=== PATIENT | female | born 1955 | race Caucasian/White ===

== ENCOUNTER 2018-09-20 09:46 | Observation (INO) | payer MEDICARE, SELFPAY ==
[2018-09-20] VITALS (9 sets, daily range): BP systolic 102–123; BP diastolic 53–74; PULSE 72–88; RESP 13–19; TEMP 36.6–36.9; O2SAT 91–98; BMI 32.9; BMI 33.9
--- NOTE | 2018-09-20 09:49 | NURSING ---
NO OLD EKGS
--- NOTE | 2018-09-20 10:03 | EKG12_ITS ---
Test Reason : REPEAT Blood Pressure : / mmHG Vent. Rate : 082 BPM Atrial Rate : 082 BPM P-R Int : 158 ms QRS Dur : 094 ms QT Int : 404 ms P-R-T Axes : 055 -24 025 degrees QTc Int : 472 ms Normal sinus rhythm Voltage criteria for left ventricular hypertrophy Abnormal ECG Confirmed by ISAK SAMUEL, DAVID ([id number]), non linear editor PRAVEEN STOUT ([id number]) on 09/21/2018 8:10:43 AM Referred By: Jorge Iniguez Confirmed By:DAVID PARISI MD
--- NOTE | 2018-09-20 10:03 | RAD_ITS ---
STUDY: X-RAY CHEST REASON FOR EXAM: Female, 62 years old. Left-sided chest pain. Dizziness and shortness of breath. TECHNIQUE: Single AP portable view of the chest. COMPARISON: None. FINDINGS: EKG electrodes are seen. The lungs are clear and expanded. There is no demonstrated pleural abnormality. Normal size heart. Normal mediastinum and melonie. Normal visualized pulmonary arteries. There is atherosclerotic tortuosity of the aortic arch and descending thoracic aorta. There are diffuse degenerative changes of the visualized thoracic spine. Fusion in the lower cervical spine. There is no demonstrated abnormality of the visualized soft tissue structures of the upper abdomen. RAD/Chest 1 View (Portable) IMPRESSION: No acute abnormality is seen. Electronically Signed: Mat Pitts, at 10:23 EDT , Service support ,
--- NOTE | 2018-09-20 10:09 | ED.DCSUM_ITS ---
History of Present Illness Chief Complaint: Chest Pain Informant: Patient Onset: Today Context: Sudden Onset Timing: Continuous Quality: Heaviness Location: Central chest radiating to neck Current Severity: Moderate Maximum Severity: Moderate Worsened by: Possibly smoking crack cocaine Relieved by: Nothing Narrative: Patient is a 62-year-old woman with history of hypertension, diabetes, hypercholesterolemia and coronary artery disease who presents with chest tightne ss that radiates to the jaw associated with diaphoresis, dyspnea and mild nausea that started between 0830 and 0900. Patient states that she is still having discomfort. She states she uses crack cocaine on a regular basis over the past 5 years. She denies fever, chills night sweats. She denies URI symptoms. Denies history of PE or DVT. She denies leg pain, swelling discoloration. She states intermittently her feet swell. She is not a good informant. Prior similar symptoms: No Recent Illness/Hospitalization: No - Past Medical History (1) History of hypertension Status: Acute (2) Hypercholesterolemia Status: Acute (3) History of diabetes mellitus Status: Acute (4) History of coronary artery disease Status: Acute Past Medical History - Allergies and Home Meds Allergies/Adverse Reactions: Allergies ampicillin Allergy (Verified 09/20/18 10:25) Nausea/Vom/Diarrhea bupropion [From Wellbutrin] Allergy (Verified 09/20/18 10:25) Rash Sulfa (Sulfonamide Antibiotics) Allergy (Verified 09/20/18 10:25) Nausea/Vom/Diarrhea Prior records reviewed: No Surgical History: - - Cardiac catheterization by Dr. chisholm many years ago Lives: Spouse/ Significant Other Smoking Status: Never smoker Alcohol: None Drugs: Cocaine Review of Systems General: Denies: Chills, Fever, Sweats Eyes: Denies: Visual changes - bilaterally, Diplopia ENT: Denies: Rhinorrhea, Sore throat Cardiovascular: Reports: Chest pain. Denies: Palpitations Respiratory: Reports: Dyspnea, Dyspnea on exertion. Denies: Cough, Sputum, Orthopnea, Paroxysmal nocturnal dyspnea, -, - Gastrointestinal: Denies: Abdominal pain, Nausea, Vomiting, Diarrhea, Melena, Hematochezia Genitourinary: Denies: Dysuria, Hematuria, Frequency Musculoskeletal: Denies: Myalgias, Arthralgias, Neck pain, Back pain, Extremity Pain Skin: Denies: Rash, Wounds Neurological: Denies: Headache, Weakness, Numbness Hematologic: Denies: Easy bruising, Easy bleeding Physical Exam Vital Signs/Narrative: Vital Signs Temp Pulse Resp BP Pulse Ox 09/20/18 09:48 98.3 F 87 19 H 123/66 H 91 Inital Vital Signs reviewed: Yes General: Well nourished, Well developed, No Acute Distress Head: Normocephalic, Atraumatic Eyes: Perrl, EOMI ENT: Moist mucous membranes, No rhinorrhea Neck: Supple, Nontender Cardiovascular: Regular rate, Regular rhythm, No murmurs, Normal S1, Normal S2 Respiratory: No distress, CTA bilaterally, Chest nontender Abdomen: Soft, Nontender, Nondistended, Normal bowel sounds Back: Nontender, Normal Inspection. Negative for: CVA tenderness Extremities: Nontender, No edema, - - There is no asymmetry, swelling, discoloration, leg vein distention, palpable cords or tenderness along the distribution of the deep venous system. Skin: Normal color, No rash, No Trauma. Negative for: Cyanosis, Diaphoresis, Jaundice Neurological: Alert, Oriented x3, Cranial nerves II-XII grossly intact, Normal Strength, Normal Sensation Psychological: Normal affect, Normal Mood Diagnostic/Tx/Re-eval Chest X-Ray - ED: 1 View, Read by ED Physician, Normal, Heart, Lungs, Mediastinum, Bony Structures, No Acute Disease Impressions Chest X-Ray 09/20/18 10:03 IMPRESSION: No acute abnormality is seen. Electronically Signed: Mat Pitts, at 10:23 EDT , Service support , 09/20/18 10:03 Chest 1 View (Portable) [RAD] Stat Laboratory Results 09/20/18 09/20/18 10:15 10:15 WBC 10.4 RBC 4.29 Hgb 12.0 Hct 36.6 L MCV 85.3 MCH 28.0 MCHC 32.8 RDW 13.7 RDW Differential 41.9 Plt Count 240 MPV 10.0 Immature Gran % (Auto) 0.400 Neut % (Auto) 54.3 Lymph % (Auto) 37.0 [place] % (Auto) 7.0 Eos % (Auto) 1.1 Baso % (Auto) 0.2 Absolute Neuts (auto) 5.7 Absolute Lymphs (auto) 3.86 Total Counted Not Reportable Sodium 135 L Potassium 3.2 L Chloride 98 Carbon Dioxide 27.0 Anion Gap 10 BUN 16 Creatinine 1.08 H Estim Creat Clear Calc 42.72 Est GFR (MDRD) Af Amer 66 Est GFR (MDRD) Non-Af 55 L BUN/Creatinine Ratio 14.8 Glucose 310 H Calcium 8.9 Troponin I < 0.015 - Medical Decision Making With multiple risk factors and history coronary disease will obtain EKG, chest x-ray for blood work to assess the etiology of her chest pain. This may be related to crack cocaine use, cardiac ischemia, noncardiac cause. Noncardiac causes include esophagitis/gastritis, GERD pain of unknown etiology and possibly pulmonary. Patient was reassessed at 1045. She is now complaining of burning sensation that radiates to her throat. This may represent GERD or GI etiology. She reports no improvement of the chest tightness with nitro; however, she no longer has tightness. She did receive nitroglycerin in the emergency department. ED Disposition - Plan for ED Patient: Disposition: Home or Assisted Living Diagnosis: Central chest pain, History of coronary artery disease, Crack cocaine use, History of diabetes mellitus, History of hypertension, Hypercholesterolemia
[2018-09-20] MEDS: Nitroglycerin SL (ED/IMG/CATH) 0.4 MG TABLET SUBLINGUAL (10:26)
--- NOTE | 2018-09-20 10:27 | ED.RN ---
NITRO GIVEN 12 NITRO FOR COMPLAINTS OD CHEST PAIN. 2 NITRO PER SQUAD WITH NO EFFECT. PT STATES MORE OF A BURNING SENSATION UP INTO ESOPHAGUS.
--- NOTE | 2018-09-20 10:31 | ED.RN ---
PT STATES ONLY SMOKES 1 TO 2 TIMES A WEEK--OR WHENEVER SHE SMOKES CRACK,BUT DOES NOT SMOKE REGULAR CIGARETTES
[2018-09-20 10:34] LABS: Absolute Lymphocyte Count 3.86 X10^3/ul (0.83-4.51); Absolute Neutrophil Count 5.7 X10^3/uL (2.0-7.7); Basophil# 0.02 X10^3/uL; Basophil% 0.2 % (0-1); Eosinophil# 0.11 X10^3/uL; Eosinophils% 1.1 % (0-5); Hematocrit 36.6 % (37-47); Lymphocyte # 3.86 X10^3/ul (4.0); Mean Corp Hgb Conc 32.8 g/gl (32-36); Mean Corpuscular Volume 85.3 fL (81-99); Monocyte# 0.73 X10^3/uL; Neutrophil # 5.66 X10^3/uL (2.7-7.7); Neutrophil % 54.3 % (47-70); Platelet Count 240 K/mm3 (150-450); RBC Distribution Width CV 13.7 % (11.6-14.6); RBC Distribution Width SD 41.9 fl (35.1-43.9); Red Blood Count 4.29 M/mm3 (4.2-5.4); White Blood Count 10.4 K/mm3 (4.4-11.0)
[2018-09-20 10:35] LABS: POSITIVE COUNT NO; POSITIVE DIFFERENTIAL NO; POSITIVE MORPHOLOGY NO
[2018-09-20 10:43] LABS: Anion Gap 10 (5-15); BUN 16 mg/dL (7-18); BUN/Creat Ratio 14.8 RATIO (10-20); Calcium,Total 8.9 mg/dL (8.5-10.1); Chloride 98 mmol/L (98-107); Creatinine, Serum 1.08 mg/dL (0.55-1.02); EST Glomerular Filtration Rate 55 mL/min (>60); Est Glom Filt Rate - Afr Amer 66 mL/min (>60); Estimated Creatinine Clearance 42.72 ml/min; Glucose 310 mg/dL (74-106); Potassium 3.2 mmol/L (3.5-5.1); Sodium Level 135 mmol/L (136-145)
--- NOTE | 2018-09-20 10:54 | NURSING ---
DR STINSON FOR DR BARBER
--- NOTE | 2018-09-20 12:22 | EKG12_ITS ---
Test Reason : CP Blood Pressure : / mmHG Vent. Rate : 087 BPM Atrial Rate : 087 BPM P-R Int : 150 ms QRS Dur : 090 ms QT Int : 400 ms P-R-T Axes : 070 -23 -10 degrees QTc Int : 481 ms Sinus rhythm with Fusion complexes Moderate voltage criteria for LVH, may be normal variant Nonspecific T wave abnormality Abnormal ECG Confirmed by ISAK SAMUEL, DAVID ([id number]), offline editor PRAVEEN STOUT ([id number]) on 09/21/2018 8:11:38 AM Referred By: Jorge Iniguez Confirmed By:DAVID PARISI MD
--- NOTE | 2018-09-20 12:26 | EKG12_ITS ---
Test Reason : CP ADMISSION Blood Pressure : / mmHG Vent. Rate : 070 BPM Atrial Rate : 070 BPM P-R Int : 156 ms QRS Dur : 094 ms QT Int : 418 ms P-R-T Axes : 047 -24 -01 degrees QTc Int : 451 ms Normal sinus rhythm Leftward axis Voltage criteria for left ventricular hypertrophy Poor R wave progression Abnormal ECG When compared with ECG of 20-SEP-2018 10:15, MANUAL COMPARISON REQUIRED, DATA IS UNCONFIRMED Confirmed by SHIN SAMUEL, KEENAN ([id number]), food editor CAREN CUMMINS ([id number]) on 09/22/2018 3:21:24 PM Referred By: Jorge Iniguez Confirmed By:KEENAN MELISSA MD
[2018-09-20] MEDS: Insulin Lispro 100 UNIT/ML INSULN.PEN SQ ×3 (12:40→22:43)
[2018-09-20 13:05] LABS: Bedside Glucose 244 mg/dL (70-110)
[2018-09-20] MEDS: Pregabalin 75 MG Capsule PO ×2 (16:01→20:35)
[2018-09-20] MEDS: Pramipexole Di-HCl 1 MG Tablet PO (16:02)
--- NOTE | 2018-09-20 16:10 | PCM.HP.STD ---
Problem List (1) History of hypertension Status: Acute (2) Hypercholesterolemia Status: Acute (3) History of diabetes mellitus Status: Acute (4) Central chest pain Status: Acute (5) Crack cocaine use Status: Acute History of Present Illness Date of Admission: 09/20/18 Chief Complaint: Chest pain The patient is a 62 year old F who is never been to this hospital before with history as below presents with chest pain. She states that she had chest tightness that began suddenly and radiated to her jaw and had association with dyspnea, mild nausea as well as diaphoresis. She said that the chest pain started this morning between 8 and 9 AM and she was an active and it did not get worse with activity. She has had chest pain like this in the past that had evaluation that was negative with a cardiac cath years ago. She presented to the ER where she had an initial troponin that was normal and a normal EKG. she admits to smoking crack cocaine for the past 5 years and her last use was last night. This morning she woke up with chest pain. Past Medical History Allergies ampicillin Allergy (Verified 09/20/18 10:25) Nausea/Vom/Diarrhea bupropion [From Wellbutrin] Allergy (Verified 09/20/18 10:25) Rash Sulfa (Sulfonamide Antibiotics) Allergy (Verified 09/20/18 10:25) Nausea/Vom/Diarrhea Home Medications: Ambulatory Orders Medication Instructions Recorded Albuterol IH (ProAir) [Proair Hfa 1 puff INHALATION Q4H PRN PRN 09/20/18 (SP)Vent Pts] Albuterol Sulfate [Proair 90 mcg IH DAILY 09/20/18 Respiclick] Atorvastatin Calcium 10 mg PO DAILY 09/20/18 Brexpiprazole [Rexulti] 2 mg PO QHS 09/20/18 Budesonide/Formoterol 160/4.5 2 puff INHALATION BID 09/20/18 [Symbicort 160/4.5 Mcg Inhaler (SP)] Duloxetine HCl 60 mg PO DAILY 09/20/18 Gabapentin [Neurontin] 300 mg PO TID 09/20/18 Insulin Degludec [Tresiba 44 unit SQ DAILY 09/20/18 Flextouch U-100] Insulin Detemir [Levemir (BKC)] 8 units SC BID 09/20/18 Lisinopril 20 mg PO DAILY 09/20/18 Meloxicam 15 mg PO DAILY 09/20/18 Metoprolol Tartrate 50 mg PO DAILY 09/20/18 Omeprazole 20 mg PO DAILY 09/20/18 Pramipexole Di-HCl [Pramipexole 1 mg PO BID 09/20/18 Dihydrochloride] Pregabalin [Lyrica] 75 mg PO TID 09/20/18 busPIRone [Buspar] 15 mg PO BID 09/20/18 traZODone [Desyrel] 100 mg PO QHS 09/20/18 Surgical History: appendectomy, cholecystectomy, hysterectomy, - - Cardiac catheterization by Dr. chisholm many years ago Lives: Spouse/ Significant Other Smoking Status: Never smoker Alcohol: None Drugs: Cocaine - *Family History Maternal History Items: Heart Disease, Stroke Review of Systems Constitutional: Denies: Chills, Fever, Weight Change HEENT: Denies: Head Aches, Sinus Congestion, Sinus Drainage Cardiovascular: Reports: Chest Pressure, Light Headedness. Denies: Chest Pain, Palpitations Respiratory: Reports: Shortness of Breath. Denies: Cough, Shortness of breath at rest, Sputum production Gastrointestinal: Denies: Abdominal Pain, Nausea, Vomiting Genitourinary: Denies: Dysuria Musculoskeletal: Denies: Joint Pain, Joint Tenderness Skin: Denies: Rash, Wounds Neurological: Denies: Numbness, Tingling, Focal weakness Psychiatric: Denies: Anxiety, Depression Hematologic/ Lymphatic: Denies: Easy Bruising, Easy Bleeding VTE Information - Inpt Only VTE Present on Admission: Yes Patient Problems: Active and Suspected Problems History of hypertension (Acute) Hypercholesterolemia (Acute) History of diabetes mellitus (Acute) History of coronary artery disease (Acute) Central chest pain (Acute) Crack cocaine use (Acute) - Physical Exam General: Alert, Oriented x3, Cooperative, No apparent distress HEENT: Atraumatic, PERRLA, EOMI, Normocephalic Oral: Moist Mucosa Neck: Supple, No JVD Lungs: Clear to auscultation, Normal air movement, No rhonchi, No wheeze, No rales, Diminished Cardiovascular: Regular rate, Regular Rhythm, Normal S1, Normal S2, No murmurs Abdomen: Soft, Non Tender, Non-Distended, No Hepato-splenomegaly Extremities: No edema, Capillary Refill Less than 3 Seconds Skin: No rashes, No breakdown Neurological: Neuro grossly intact, Sensory exam intact to light touch and pain Psych/Mental Status: Normal Affect, Appropriate Vital Signs Temp Pulse Resp BP Pulse Ox 98.1 F 75 13 121/74 H 96 09/20/18 11:48 09/20/18 15:08 09/20/18 11:48 09/20/18 11:48 09/20/18 11:48 Oxygen Flow Rate (L/min) 2 Oxygen Delivery Method Room Air Weight: 185 lb 6.54 oz Body Mass Index (BMI) 33.9 Laboratory Tests Past 24 Hrs 09/20/18 09/20/18 09/20/18 10:15 10:15 13:00 WBC 10.4 RBC 4.29 Hgb 12.0 Hct 36.6 L MCV 85.3 MCH 28.0 MCHC 32.8 RDW 13.7 RDW Differential 41.9 Plt Count 240 MPV 10.0 Immature Gran % (Auto) 0.400 Neut % (Auto) 54.3 Lymph % (Auto) 37.0 [place] % (Auto) 7.0 Eos % (Auto) 1.1 Baso % (Auto) 0.2 Absolute Neuts (auto) 5.7 Absolute Lymphs (auto) 3.86 Total Counted Not Reportable Sodium 135 L Potassium 3.2 L Chloride 98 Carbon Dioxide 27.0 Anion Gap 10 BUN 16 Creatinine 1.08 H Estim Creat Clear Calc 42.72 Est GFR (MDRD) Af Amer 66 Est GFR (MDRD) Non-Af 55 L BUN/Creatinine Ratio 14.8 Glucose 310 H Calcium 8.9 Troponin I < 0.015 < 0.015 POC Glucose 09/20/18 12:29 POC Glucose 244 H Assessment/Plan All Active Problems History of hypertension (Acute) Hypercholesterolemia (Acute) History of diabetes mellitus (Acute) History of coronary artery disease (Acute) Central chest pain (Acute) Crack cocaine use (Acute) 1. Chest pain -States that her pain is in the middle of her chest and radiates to her jaw -Her pain resolved earlier today and she states it is coming back -2 troponins are normal and EKG is unremarkable -She denies any specific association with activity -We will plan for stress test in the morning 2. CAD status post cath without a stent/HTN/HLD -She states that she had a cardiac cath years ago which was normal and the need a stent -At that time she was having chest pain and said that he might be having heart failure but she is not sure -At the moment we will continue with her home blood pressure medications of metoprolol, lisinopril, and continue with Lipitor 3. IDDM 2/neuropathy -Her blood sugars have been out of control she says and was going to have a change done to her insulin regimen by her doctor on the when she sees her PCP -We will continue with Lantus 44 units in the morning as well as a sliding scale insulin -She is on both gabapentin and Lyrica as an outpatient which can be continued as well as the pramipexole 4. Depression/anxiety -Stable -Continue with her Rexulti, BuSpar, Cymbalta, trazodone 5. Asthma -Currently without exacerbation -Continue with her home aerosols 6. Drug use -She admits to smoking crack cocaine 3 times a month, her last use was yesterday and today she has chest pain -We will obtain a urine drug screen but she denies other drug use 7. Hypokalemia -Admission her potassium was 3.2, -Potassium 60 mEq p.o. was given today DVT: Lovenox Code Visit OBSV E&M: 81101 Initial observation care L3
[2018-09-20 17:20] LABS: Amphetamine Urine VISTA NEGATIVE (<1000 ng/mL); Barbiturate Urine VISTA NEGATIVE (< 200 ng/mL); Benzodiazepine Urine VISTA NEGATIVE (< 200 ng/mL); Cocaine Urine VISTA POSITIVE (< 300 ng/mL); Ecstacy Urine VISTA NEGATIVE (< 500 ng/mL); Methadone Urine VISTA NEGATIVE (< 300 ng/mL); PCP Urine VISTA NEGATIVE (< 25 ng/mL); THC Urine VISTA POSITIVE (< 50 ng/mL); Vista UDS pH Range 6
[2018-09-20 17:45] LABS: Bedside Glucose 218 mg/dL (70-110)
[2018-09-20] MEDS: BREXPIPRAZOLE 2 MG TABLET PO (20:35)
[2018-09-20] MEDS: Atorvastatin Calcium 10 MG Tablet PO (20:35)
[2018-09-20] MEDS: traZODone 100 MG Tablet PO (20:35)
[2018-09-20] MEDS: busPIRone 15 MG TABLET PO (20:36)
[2018-09-20 22:51] LABS: Bedside Glucose 176 mg/dL (70-110)
[2018-09-21 02:40] VITALS: BP 124/72; PULSE 65; RESP 16; TEMP 36.5; O2SAT 99
[2018-09-21 03:00] VITALS: PULSE 67
[2018-09-21] MEDS: Lisinopril 20 MG Tablet PO (05:54)
[2018-09-21] MEDS: Pregabalin 75 MG Capsule PO (05:54)
[2018-09-21 05:55] VITALS: BP 92/72; PULSE 80; RESP 16; TEMP 37; O2SAT 96
--- NOTE | 2018-09-21 05:55 | EKG12_ITS ---
Test Reason : AM EKG Blood Pressure : / mmHG Vent. Rate : 064 BPM Atrial Rate : 064 BPM P-R Int : 170 ms QRS Dur : 080 ms QT Int : 428 ms P-R-T Axes : 067 -26 -16 degrees QTc Int : 441 ms Normal sinus rhythm Minimal voltage criteria for LVH, may be normal variant Borderline ECG Confirmed by SHIN SAMUEL, KEENAN ([id number]), index editor RADHA COLON ([id number]) on 09/22/2018 11:40:05 AM Referred By: Jorge Iniguez Confirmed By:KEENAN MELISSA MD
[2018-09-21 06:01] LABS: International Normalized Ratio 0.9; Prothrombin Time (Protime)PT. 12.4 SECONDS (11.7-14.9)
[2018-09-21 06:02] LABS: Partial Thromboplast Time 26.9 Seconds (24.1-36.2)
[2018-09-21 06:03] LABS: Absolute Lymphocyte Count 3.78 X10^3/ul (0.83-4.51); Absolute Neutrophil Count 4.4 X10^3/uL (2.0-7.7); Basophil# 0.02 X10^3/uL; Basophil% 0.2 % (0-1); Eosinophil# 0.19 X10^3/uL; Eosinophils% 2.1 % (0-5); Hematocrit 37.6 % (37-47); Hemoglobin 11.9 g/dl (12.0-15.0); Lymphocyte # 3.78 X10^3/ul (4.0); Mean Corp Hgb Conc 31.6 g/gl (32-36); Mean Corpuscular Hgb 27.7 pg (27.0-32.0); Mean Corpuscular Volume 87.4 fL (81-99); Mean Platelet Vol. 10.2 fl (6.2-12.0); Monocyte# 0.55 X10^3/uL; Monocyte% 6.1 % (0-10); Neutrophil # 4.43 X10^3/uL (2.7-7.7); Neutrophil % 49.2 % (47-70); Platelet Count 225 K/mm3 (150-450); RBC Distribution Width CV 13.8 % (11.6-14.6); RBC Distribution Width SD 43.4 fl (35.1-43.9)
[2018-09-21 06:11] LABS: POSITIVE COUNT NO; POSITIVE DIFFERENTIAL NO; POSITIVE MORPHOLOGY NO
[2018-09-21 06:21] LABS: Anion Gap 10 (5-15); BUN 15 mg/dL (7-18); BUN/Creat Ratio 16.5 RATIO (10-20); Calcium,Total 8.8 mg/dL (8.5-10.1); Chloride 108 mmol/L (98-107); Cholesterol 154 mg/dL (200); Creatinine, Serum 0.91 mg/dL (0.55-1.02); EST Glomerular Filtration Rate 67 mL/min (>60); Est Glom Filt Rate - Afr Amer 81 mL/min (>60); Glucose 192 mg/dL (74-106); High Density Lipoprotein 41 mg/dL; Magnesium 1.8 mg/dL (1.6-2.6); Potassium 4.2 mmol/L (3.5-5.1); Sodium Level 142 mmol/L (136-145); Triglycerides 238 mg/dL; Very Low Density Lipoprotein 48 mg/dL (5-40)
[2018-09-21 07:10] LABS: Bedside Glucose 188 mg/dL (70-110)
--- NOTE | 2018-09-21 09:04 | STRESSREP ---
Stress Test Report Date: 09-21-18 Procedure: Pharmacologic stress nuclear imaging study Indications: Chest pain: Dyspnea Consent: Per the patient Procedure: The patient underwent pharmacologic (Regadenoson) evaluation with a peak heart rate of 86 beats per minute (54 %predicted maximal heart rate) and a peak blood pressure of 134/59 mmHg. The baseline ECG demonstrated normal sinus rhythm: Nonspecific T wave abnormality. The peak pharmacologic ECG demonstrated nonspecific T wave abnormality. There were no cardiac dysrhythmias pretest, during pharmacologic infusion, or recovery. There was no complaint of chest discomfort during pharmacologic infusion or recovery. The examination was discontinued secondary to completion of protocol. Impression: 1. Pharmacologic (Regadenoson) evaluation 2. Peak pharmacologic ECG with continued nonspecific T wave abnormality. 3. There were no cardiac dysrhythmias pretest, during pharmacologic infusion, or recovery. 4. Nuclear images pending Myocardial perfusion imaging study: Technique: The patient was injected with 11.9 millicuries of technetium 99m Cardiolite and subsequently rest SPECT Cardiolite nuclear imaging was obtained in the horizontal long, vertical long, and short axis views. The patient underwent pharmacologic (Regadenoson) evaluation with a peak heart rate of 86 beats per minute (54 % percent predicted maximal heart rate) and a peak blood pressure of 134/59 mmHg. The patient was injected with 34.1 millicuries of technetium 99m Cardiolite and subsequently stress SPECT Cardiolite nuclear imaging was obtained in the horizontal long, vertical long, and short axis views. A gated Cardiolite study at peak stress was obtained. Interpretation: Rest and stress SPECT Cardiolite nuclear imaging status post realignment, normalization, and attenuation correction demonstrate relative uniform tracer uptake and myocardial perfusion appearing within normal limits. There is end systolic thickening and brightening. The gated Cardiolite study demonstrates myocardial thickening and inward wall motion. The reported LVEF is 60 %. Impression: 1. Rest and stress SPECT Cardiolite nuclear imaging demonstrate relative uniform tracer uptake and myocardial perfusion appearing within normal limits. 2. The gated Cardiolite study reports an LVEF of 60 %. This note was generated with [employer] software. It may contain incorrect words, spelling, and punctuation that were not noted in checking the note before signing.
[2018-09-21 09:12] VITALS: PULSE 65
--- NOTE | 2018-09-21 09:15 | STRESSREP_ITS ---
Stress Test Report Date: 09-21-18 Procedure: Pharmacologic stress nuclear imaging study Indications: Chest pain: Dyspnea Consent: Per the patient Procedure: The patient underwent pharmacologic (Regadenoson) evaluation with a peak heart rate of 86 beats per minute (54 %predicted maximal heart rate) and a peak blood pressure of 134/59 mmHg. The baseline ECG demonstrated normal sinus rhythm: Nonspecific T wave abnormality. The peak pharmacologic ECG demonstrated nonspecific T wave abnormality. There were no cardiac dysrhythmias pretest, during pharmacologic infusion, or recovery. There was no complaint of chest discomfort during pharmacologic infusion or recovery. The examination was discontinued secondary to completion of protocol. Impression: 1. Pharmacologic (Regadenoson) evaluation 2. Peak pharmacologic ECG with continued nonspecific T wave abnormality. 3. There were no cardiac dysrhythmias pretest, during pharmacologic infusion, or recovery. 4. Nuclear images pending Myocardial perfusion imaging study: Technique: The patient was injected with 11.9 millicuries of technetium 99m Cardiolite and subsequently rest SPECT Cardiolite nuclear imaging was obtained in the horizontal long, vertical long, and short axis views. The patient underwent pharmacologic (Regadenoson) evaluation with a peak heart rate of 86 beats per minute (54 % percent predicted maximal heart rate) and a peak blood pressure of 134/59 mmHg. The patient was injected with 34.1 millicuries of technetium 99m Cardiolite and subsequently stress SPECT Cardiolite nuclear imaging was obtained in the horizontal long, vertical long, and short axis views. A gated Cardiolite study at peak stress was obtained. Interpretation: Rest and stress SPECT Cardiolite nuclear imaging status post realignment, normalization, and attenuation correction demonstrate relative uniform tracer uptake and myocardial perfusion appearing within normal limits. There is end s ystolic thickening and brightening. The gated Cardiolite study demonstrates myocardial thickening and inward wall motion. The reported LVEF is 60 %. Impression: 1. Rest and stress SPECT Cardiolite nuclear imaging demonstrate relative uniform tracer uptake and myocardial perfusion appearing within normal limits. 2. The gated Cardiolite study reports an LVEF of 60 %. This note was generated with [employer] software. It may contain incorrect words, spelling, and punctuation that were not noted in checking the note before signing.
--- NOTE | 2018-09-21 09:44 | DCINST_ITS ---
- Discharge Diagnoses Current Active Problems: Current Active and Chronic Problems History of hypertension (Acute) Hypercholesterolemia (Acute) History of diabetes mellitus (Acute) History of coronary artery disease (Acute) Central chest pain (Acute) Crack cocaine use (Acute) You will use the following diet at home:: Cardiac Your food should be the consistency of: Regular Your liquids should be the consistency of: Regular/Thin Discharge Activity: Return to Normal Activity Call your doctor if you observe: Fever of 101 or Higher, Shortness of breath, Dizziness, Fainting spells, Swelling in the ankles, Chest pain, Increased palpitations (irregular heartbeat) Additional Instructions: Avoid crack cocaine as this can exacerbate feelings of chest pain. Allergies/Adverse Reactions: Allergies ampicillin Allergy (Verified 09/20/18 10:25) Nausea/Vom/Diarrhea bupropion [From Wellbutrin] Allergy (Verified 09/20/18 10:25) Rash Sulfa (Sulfonamide Antibiotics) Allergy (Verified 09/20/18 10:25) Nausea/Vom/Diarrhea Medications to take at Discharge Albuterol IH (ProAir) [Proair Hfa] 1 puff INHALATION Q4H PRN PRN 09/20/18 Albuterol Sulfate [Proair Respiclick] 90 mcg IH DAILY 09/20/18 Atorvastatin Calcium 10 mg PO DAILY 09/20/18 Brexpiprazole [Rexulti] 2 mg PO QHS 09/20/18 Budesonide/Formoterol 160/4.5 [Symbicort 160/4.5 Mcg Inhaler (SP)] 2 puff INHALATION BID 09/20/18 Duloxetine HCl 60 mg PO DAILY 09/20/18 Gabapentin [Neurontin] 300 mg PO TID 09/20/18 Insulin Degludec [Tresiba Flextouch U-100] 44 unit SQ DAILY 09/20/18 Insulin Detemir [Levemir FlexPen] 8 units SC BID 09/20/18 Lisinopril 20 mg PO DAILY 09/20/18 Meloxicam 15 mg PO DAILY 09/20/18 Metoprolol Tartrate 50 mg PO DAILY 09/20/18 Omeprazole 20 mg PO DAILY 09/20/18 Pramipexole Di-HCl [Pramipexole Dihydrochloride] 1 mg PO BID 09/20/18 Pregabalin [Lyrica] 75 mg PO TID 09/20/18 busPIRone [Buspar] 15 mg PO BID 09/20/18 traZODone [Desyrel] 100 mg PO QHS 09/20/18 Primary Care Physician: Sophia Foote DO [Primary Care Provider] - Please follow up with your Primary Care Physician in: 3-5 days Test Results: Test results from this visit will be discussed in further detail at your follow- up appointment, if applicable.
[2018-09-21 09:57] VITALS: BP 127/55; PULSE 66; RESP 16; TEMP 36.6; O2SAT 98
[2018-09-21 10:00] VITALS: PULSE 66
[2018-09-21] MEDS: Meloxicam 15 MG Tablet PO (10:00)
[2018-09-21] MEDS: busPIRone 15 MG TABLET PO (10:00)
[2018-09-21] MEDS: DULoxetine Hcl 60 MG Capsule PO (10:00)
[2018-09-21] MEDS: Metoprolol Tartrate 50 MG Tablet PO (10:00)
[2018-09-21] MEDS: Pramipexole Di-HCl 1 MG Tablet PO (10:01)
--- NOTE | 2018-09-21 10:25 | PCM.DC.SUM ---
Discharge Date and Diagnosis - Problem List Patient Problems: Active and Suspected Problems History of hypertension (Acute) Hypercholesterolemia (Acute) History of diabetes mellitus (Acute) History of coronary artery disease (Acute) Central chest pain (Acute) Crack cocaine use (Acute) Date of Admission: 09/20/18 Date of Discharge: 09/21/18 - Primary Discharge Diagnosis Active and Suspected Problems History of hypertension (Acute) Hypercholesterolemia (Acute) History of diabetes mellitus (Acute) History of coronary artery disease (Acute) Central chest pain (Acute) Crack cocaine use (Acute) Hospital Course and Treatment Imaging Results: CXR: Normal Consults: None Operations: None Procedures: Nuclear stress test - Interpretation: Rest and stress SPECT Cardiolite nuclear imaging status post realignment, normalization, and attenuation correction demonstrate relative uniform tracer uptake and myocardial perfusion appearing within normal limits. There is end systolic thickening and brightening. The gated Cardiolite study demonstrates myocardial thickening and inward wall motion. The reported LVEF is 60 %. Impression: 1. Rest and stress SPECT Cardiolite nuclear imaging demonstrate relative uniform tracer uptake and myocardial perfusion appearing within normal limits. 2. The gated Cardiolite study reports an LVEF of 60 %. Summary of Care Provided: Per HPI: The patient is a 62 year old F who is never been to this hospital before with history as below presents with chest pain. She states that she had chest tightness that began suddenly and radiated to her jaw and had association with dyspnea, mild nausea as well as diaphoresis. She said that the chest pain started this morning between 8 and 9 AM and she was an active and it did not get worse with activity. She has had chest pain like this in the past that had evaluation that was negative with a cardiac cath years ago. She presented to the ER where she had an initial troponin that was normal and a normal EKG. she admits to smoking crack cocaine for the past 5 years and her last use was last night. This morning she woke up with chest pain. Hospital Course: 1. Chest pain/CAD status post cath without a stent/HTN/[id number]-suco-old female who is been smoking crack cocaine presented 12 hours after smoking cocaine with chest pain. It was not associated with any movement that she could describe. She had 3- troponins, normal EKG, and a negative stress test. She states that her pain has resolved today and that she is feeling better and would like to go home. I discussed with her that she should discontinue smoking crack cocaine as this can cause chest pain and follow-up with her primary care doctor in 3 to 5 days. She understood and agreed to the plan. 2. IDDM 2/neuropathy/obesity-she is a 44 units of Tresiba in the morning as well as 8 units of Levemir twice daily. During her admission she was only on the 44 units daily and her blood sugars were controlled below 200 on an appropriate diet this was also discussed with her especially given that her BMI is 33.9. Lifestyle modifications were advised. She is going to follow-up with her primary care physician for insulin dosing adjustment. 2. Her other medical diagnoses were evaluated in her home medications were continued where appropriate Patient Problems: Active and Suspected Problems History of hypertension (Acute) Hypercholesterolemia (Acute) History of diabetes mellitus (Acute) History of coronary artery disease (Acute) Central chest pain (Acute) Crack cocaine use (Acute) Objective: General: Alert, Oriented x3, Cooperative, No apparent distress HEENT: Atraumatic, PERRLA, EOMI, Normocephalic Oral: Moist Mucosa Neck: Supple, No JVD Lungs: Clear to auscultation, Normal air movement, No rhonchi, No wheeze, No rales, Diminished Cardiovascular: Regular rate, Regular Rhythm, Normal S1, Normal S2, No murmurs Abdomen: Soft, Non Tender, Non-Distended, No Hepato-splenomegaly Extremities: No edema, Capillary Refill Less than 3 Seconds Skin: No rashes, No breakdown Neurological: Neuro grossly intact, Sensory exam intact to light touch and pain Psych/Mental Status: Normal Affect, Appropriate - Physical Exam Vital Signs Temp Pulse Resp BP Pulse Ox 97.9 F 66 16 127/55 H 98 09/21/18 09:57 09/21/18 10:00 09/21/18 09:57 09/21/18 09:57 09/21/18 09:57 Oxygen Flow Rate (L/min) 2 Oxygen Delivery Method Room Air Weight: 185 lb 6.54 oz Body Mass Index (BMI) 33.9 Intake and Output for Last 24 Hours 09/19/18 09/20/18 09/21/18 23:59 23:59 23:59 Intake Total 640 / 640 0 / 0 Balance 640 / 640 0 / 0 Laboratory Tests Past 24 Hrs 09/20/18 09/20/18 09/20/18 10:15 10:15 13:00 WBC 10.4 RBC 4.29 Hgb 12.0 Hct 36.6 L MCV 85.3 MCH 28.0 MCHC 32.8 RDW 13.7 RDW Differential 41.9 Plt Count 240 MPV 10.0 Immature Gran % (Auto) 0.400 Neut % (Auto) 54.3 Lymph % (Auto) 37.0 Geary % (Auto) 7.0 Eos % (Auto) 1.1 Baso % (Auto) 0.2 Absolute Neuts (auto) 5.7 Absolute Lymphs (auto) 3.86 Total Counted Not Reportable PT INR APTT Sodium 135 L Potassium 3.2 L Chloride 98 Carbon Dioxide 27.0 Anion Gap 10 BUN 16 Creatinine 1.08 H Estim Creat Clear Calc 42.72 Est GFR (MDRD) Af Amer 66 Est GFR (MDRD) Non-Af 55 L BUN/Creatinine Ratio 14.8 Glucose 310 H Calcium 8.9 Magnesium Troponin I < 0.015 < 0.015 Triglycerides Cholesterol LDL Cholesterol VLDL Cholesterol HDL Cholesterol Urine Opiates Screen Urine Methadone Screen Ur Barbiturates Screen Ur Phencyclidine Scrn Ur Amphetamines Screen U Methamphetamin-MDMA U Benzodiazepines Scrn Urine Cocaine Screen U Cannabinoids Screen Ur Drug Screen Comment 09/20/18 09/20/18 09/21/18 16:10 16:40 05:10 WBC RBC Hgb Hct MCV MCH MCHC RDW RDW Differential Plt Count MPV Immature Gran % (Auto) Neut % (Auto) Lymph % (Auto) Geary % (Auto) Eos % (Auto) Baso % (Auto) Absolute Neuts (auto) Absolute Lymphs (auto) Total Counted PT INR APTT Sodium 142 Potassium 4.2 Chloride 108 H Carbon Dioxide 24.0 Anion Gap 10 BUN 15 Creatinine 0.91 Estim Creat Clear Calc 50.70 Est GFR (MDRD) Af Amer 81 Est GFR (MDRD) Non-Af 67 BUN/Creatinine Ratio 16.5 Glucose 192 H Calcium 8.8 Magnesium 1.8 Troponin I < 0.015 Triglycerides 238 H Cholesterol 154 LDL Cholesterol 65 VLDL Cholesterol 48 H HDL Cholesterol 41 Urine Opiates Screen NEGATIVE Urine Methadone Screen NEGATIVE Ur Barbiturates Screen NEGATIVE Ur Phencyclidine Scrn NEGATIVE Ur Amphetamines Screen NEGATIVE U Methamphetamin-MDMA NEGATIVE U Benzodiazepines Scrn NEGATIVE Urine Cocaine Screen POSITIVE H U Cannabinoids Screen POSITIVE H Ur Drug Screen Comment 09/21/18 09/21/18 05:10 05:10 WBC 9.0 RBC 4.30 Hgb 11.9 L Hct 37.6 MCV 87.4 MCH 27.7 MCHC 31.6 L RDW 13.8 RDW Differential 43.4 Plt Count 225 MPV 10.2 Immature Gran % (Auto) 0.400 Neut % (Auto) 49.2 Lymph % (Auto) 42.0 H Geary % (Auto) 6.1 Eos % (Auto) 2.1 Baso % (Auto) 0.2 Absolute Neuts (auto) 4.4 Absolute Lymphs (auto) 3.78 Total Counted Not Reportable PT 12.4 INR 0.9 APTT 26.9 Sodium Potassium Chloride Carbon Dioxide Anion Gap BUN Creatinine Estim Creat Clear Calc Est GFR (MDRD) Af Amer Est GFR (MDRD) Non-Af BUN/Creatinine Ratio Glucose Calcium Magnesium Troponin I Triglycerides Cholesterol LDL Cholesterol VLDL Cholesterol HDL Cholesterol Urine Opiates Screen Urine Methadone Screen Ur Barbiturates Screen Ur Phencyclidine Scrn Ur Amphetamines Screen U Methamphetamin-MDMA U Benzodiazepines Scrn Urine Cocaine Screen U Cannabinoids Screen Ur Drug Screen Comment POC Glucose 09/21/18 09/20/18 09/20/18 05:58 22:43 16:58 POC Glucose 188 H 176 H 218 H 09/20/18 12:29 POC Glucose 244 H Discharge Activity: Return to Normal Activity Call your doctor if you observe: Fever of 101 or Higher, Shortness of breath, Dizziness, Fainting spells, Swelling in the ankles, Chest pain, Increased palpitations (irregular heartbeat) Home Medications: Medications to take at Discharge Albuterol IH (ProAir) [Proair Hfa] 1 puff INHALATION Q4H PRN PRN 09/20/18 Albuterol Sulfate [Proair Respiclick] 90 mcg IH DAILY 09/20/18 Atorvastatin Calcium 10 mg PO DAILY 09/20/18 Brexpiprazole [Rexulti] 2 mg PO QHS 09/20/18 Budesonide/Formoterol 160/4.5 [Symbicort 160/4.5 Mcg Inhaler (SP)] 2 puff INHALATION BID 09/20/18 Duloxetine HCl 60 mg PO DAILY 09/20/18 Gabapentin [Neurontin] 300 mg PO TID 09/20/18 Insulin Degludec [Tresiba Flextouch U-100] 44 unit SQ DAILY 09/20/18 Insulin Detemir [Levemir FlexPen] 8 units SC BID 09/20/18 Lisinopril 20 mg PO DAILY 09/20/18 Meloxicam 15 mg PO DAILY 09/20/18 Metoprolol Tartrate 50 mg PO DAILY 09/20/18 Omeprazole 20 mg PO DAILY 09/20/18 Pramipexole Di-HCl [Pramipexole Dihydrochloride] 1 mg PO BID 09/20/18 Pregabalin [Lyrica] 75 mg PO TID 09/20/18 busPIRone [Buspar] 15 mg PO BID 09/20/18 traZODone [Desyrel] 100 mg PO QHS 09/20/18 Primary Care Physician: Sophia Foote DO [Primary Care Provider] - Please follow up with your Primary Care Physician in: 3-5 days Disposition: Home Minutes spent on discharge:: 35 Patient Condition:: Stable Medical Necessity - Tobacco Use Smoking Status: Never smoker Meaningful Use Info Meaningful Use Diagnoses (Choose all that apply): None applicable Code Visit OBSV E&M: 72460 Observation care discharge
== END 2018-09-21 09:42 | disposition home or self-care (01) ==
LOC: ED 10:50 → PCU 11:04
PROVIDERS: Admitting Provider Family Medicine; Emergency Provider Emergency Medicine; Family Provider Family Medicine; PCP Family Medicine; Referring Provider Family Medicine; Visit Provider Family Medicine
DX: R07.89 Other chest pain (principal); I10 Essential (primary) hypertension; I25.10 Atherosclerotic heart disease of native coronary artery without angina pectoris; F14.90 Cocaine use, unspecified, uncomplicated; E11.40 Type 2 diabetes mellitus with diabetic neuropathy, unspecified; F41.9 Anxiety disorder, unspecified; F32.9 Major depressive disorder, single episode, unspecified; E87.6 Hypokalemia; E66.9 Obesity, unspecified; Z68.33 Body mass index [BMI] 33.0-33.9, adult; Z71.3 Dietary counseling and surveillance; Z79.899 Other long term (current) drug therapy; Z79.4 Long term (current) use of insulin; Z79.51 Long term (current) use of inhaled steroids; E78.5 Hyperlipidemia, unspecified; R94.31 Abnormal electrocardiogram [ECG] [EKG]
CPT/HCPCS: 36415; 71045; 78452; 80048; 80061; 80307; 82962; 83735; 84484; 85025; 85610; 85730; 93005; 93017; 99218; 99285; A9500; J7030; A4216; G0378; J2785

== ENCOUNTER → 2022-03-24 | Outpatient (REF) | payer MEDICARE, SELFPAY ==
[2022-03-24 09:58] LABS: Hemoglobin 13.2 g/dL (12.0-15.0); Mean Corpuscular Hgb 29.5 pg (27.0-32.0); Mean Corpuscular Volume 89.5 fL (81-99); Mean Platelet Vol. 11.5 fl (6.2-12.0); Platelet Count 237 K/mm3 (150-450); RBC Distribution Width CV 14.5 % (11.6-14.6); Red Blood Count 4.47 M/mm3 (4.2-5.4); White Blood Count 10.3 K/mm3 (4.4-11.0)
[2022-03-24 10:23] LABS: Vitamin D,25 Hydroxy 29.7 ng/mL
[2022-03-24 10:28] LABS: AST(SGOT) 13 U/L (15-37); Alanine Aminotransfer ALT/SGPT 20 U/L (13-56); Albumin, Serum 3.6 g/dL (3.2-5.0); Alkaline Phosphatase 65 U/L (45-117); Anion Gap 10 (5-15); BUN 19 mg/dL (7-18); BUN/Creat Ratio 12.8 RATIO (10-20); Chloride 104 mmol/L (98-107); Cholesterol 109 mg/dL (200); Creatinine, Serum 1.48 mg/dL (0.55-1.02); EST Glomerular Filtration Rate 38 mL/min (>60); Est Glom Filt Rate - Afr Amer 45 mL/min (>60); Globulin 3.6 g/dL (2.2-4.2); Glucose 112 mg/dL (74-106); High Density Lipoprotein 42 mg/dL; Magnesium 1.3 mg/dL (1.6-2.6); Potassium 3.3 mmol/L (3.5-5.1); Protein, Total 7.2 g/dL (6.4-8.2); Sodium Level 137 mmol/L (136-145); Thyroid Stim Hormone (TSH) 3.17 uIU/mL (0.358-3.74); Triglycerides 182 mg/dL; Very Low Density Lipoprotein 36 mg/dL (5-40)
== END ==
LOC: OLS.ACW100 05:00
PROVIDERS: PCP Family Medicine; Visit Provider Family Medicine
DX: N39.0 Urinary tract infection, site not specified (principal); E55.9 Vitamin D deficiency, unspecified; A41.51 Sepsis due to Escherichia coli [E. coli]; E86.0 Dehydration; N17.9 Acute kidney failure, unspecified; R41.82 Altered mental status, unspecified
CPT/HCPCS: 36415; 80053; 80061; 82306; 83735; 84443; 85027

== ENCOUNTER → 2022-04-09 | Outpatient (REF) | payer MEDICARE, SELFPAY ==
[2022-04-09 08:35] LABS: Valproic Acid (Depakene) Level 96 ug/mL (50-100)
== END ==
LOC: OLS.ACW100 05:00
PROVIDERS: PCP Family Medicine; Visit Provider Family Medicine
DX: N39.0 Urinary tract infection, site not specified (principal); A41.51 Sepsis due to Escherichia coli [E. coli]; E86.0 Dehydration; M15.0 Primary generalized (osteo)arthritis; N17.9 Acute kidney failure, unspecified; R41.82 Altered mental status, unspecified; Z79.899 Other long term (current) drug therapy
CPT/HCPCS: 36415; 80164

== ENCOUNTER → 2022-04-23 | Outpatient (REF) | payer MEDICARE, SELFPAY ==
[2022-04-23 08:40] LABS: Hematocrit 28.5 % (37-47); Hemoglobin 10.6 g/dL (12.0-15.0); Mean Corp Hgb Conc 37.2 g/dL (32-36); Mean Corpuscular Hgb 36.7 pg (27.0-32.0); Mean Corpuscular Volume 98.6 fL (81-99); Mean Platelet Vol. 10.5 fl (6.2-12.0); Platelet Count 127 K/mm3 (150-450); RBC Distribution Width CV 14.7 % (11.6-14.6); RBC Distribution Width SD 43.7 fl (35.1-43.9); Red Blood Count 2.89 M/mm3 (4.2-5.4); White Blood Count 4.9 K/mm3 (4.4-11.0)
[2022-04-23 08:51] LABS: Anion Gap 5 (5-15); BUN 54 mg/dL (7-18); BUN/Creat Ratio 34.4 RATIO (10-20); Calcium,Total 9.5 mg/dL (8.5-10.1); Chloride 109 mmol/L (98-107); Creatinine, Serum 1.57 mg/dL (0.55-1.02); EST Glomerular Filtration Rate 35 mL/min (>60); Est Glom Filt Rate - Afr Amer 42 mL/min (>60); Glucose 85 mg/dL (74-106); Potassium 4.7 mmol/L (3.5-5.1); Sodium Level 139 mmol/L (136-145)
== END ==
LOC: OLS.ACW100 05:00
PROVIDERS: PCP Family Medicine; Visit Provider Family Medicine
DX: N39.0 Urinary tract infection, site not specified (principal); A41.51 Sepsis due to Escherichia coli [E. coli]; E86.0 Dehydration; M15.0 Primary generalized (osteo)arthritis; N17.9 Acute kidney failure, unspecified; R41.82 Altered mental status, unspecified
CPT/HCPCS: 36415; 80048; 85027